=== PATIENT | female | born 1990 | race Caucasian/White ===

== ENCOUNTER 2017-10-14 20:39 | Emergency (ER) | END 2017-10-15 00:13 | disposition home or self-care (01) ==

== ENCOUNTER 2018-03-01 20:32 | Outpatient (CLI) | END 2018-03-02 01:15 | disposition home or self-care (01) ==

== ENCOUNTER 2018-04-16 11:08 | Outpatient (CLI) | END 2018-04-16 16:50 | disposition home or self-care (01) ==

== ENCOUNTER 2018-05-13 11:40 | Inpatient (IN) | END 2018-05-16 15:35 | disposition home or self-care (01) | DRG 788 ==